=== PATIENT | male | born 1975 | race Hispanic/Latino ===

== ENCOUNTER 2018-07-11 11:51 | Emergency (ER) | payer SELFPAY ==
[~2018-07-11] VITALS: Ht 165.1 cm; Wt 91.2 kg
[2018-07-11] MEDS ORDERED: SODIUM CHLORIDE 0.9% 1000ML 1,000 ML ONE (12:11)
[2018-07-11] MEDS ORDERED: SODIUM CHLORIDE 0.9% 250ML 250 ML IV ONE (12:15)
[2018-07-11] MEDS ORDERED: SODIUM CHLORIDE 0.9% 1000ML 1,000 ML IV ONE ×2 (12:15→12:30)
[2018-07-11 12:21] LABS: CLARITY,URINE HAZY (CLEAR); COLOR,URINE AMBER (YELLOW)
[2018-07-11 12:22] LABS: BILIRUBIN,URINE 1+ (NEGATIVE); KETONES,URINE 1+ (NEGATIVE); LEUKOCYTE ESTERASE ,URINE TRACE (NEGATIVE); NITRITE,URINE NEGATIVE (NEGATIVE); PROTEIN,URINE DIPSTICK 1+ (NEGATIVE); URINE UROBILINOGEN 12 mg/dL (0.2 - 1)
[2018-07-11 12:35] LABS: BASOPHILS % 0.4 % (0.0-1.0); EOSINOPHILS % 0.4 % (0.0-6.0); HEMATOCRIT 42.8 % (38.2-49.6); HEMOGLOBIN 14.6 g/dL (14.0-18.0); LYMPHOCYTES # (AUTO) 0.9 (1.0-3.2); LYMPHOCYTES % 12.6 % (18.0-39.1); MEAN CORPUSCULAR HEMOGLOBIN 29.9 pg (28-32); MEAN CORPUSCULAR HGB CONC 34.1 g/dL (31-35); MEAN CORPUSCULAR VOLUME 87.7 fL (81-99); MONOCYTES % 13.8 % (4.4-11.3); NEUTROPHILS # (AUTO) 5.2 (2.1-6.9); NEUTROPHILS % 72.1 % (38.7-80.0); PLATELET COUNT 167 x10e3/uL (140-360); RED BLOOD COUNT 4.88 x10e6/uL (4.3-5.7); RED CELL DISTRIBUTION WIDTH 12.5 % (11.7-14.4)
[2018-07-11 12:38] LABS: BACTERIA,URINE FEW /HPF; EPITHELIAL CELLS,URINE FEW /LPF; RBC,URINE 0-5 /HPF (0-5); WBC,URINE (MAN) 0-5 /HPF (0-5)
[2018-07-11 12:51] LABS: ALANINE AMINOTRANSFERASE 91 IU/L (0-55); ALBUMIN 3.7 g/dL (3.5-5.0); ALBUMIN/GLOBULIN RATIO 0.8 (0.8-2.0); ALKALINE PHOSPHATASE 67 IU/L (40-150); ANION GAP 14.5 mmol/L (8-16); BLOOD UREA NITROGEN 11 mg/dL (7-26); BUN/CREATININE RATIO 11 (6-25); CARBON DIOXIDE 20 mmol/L (22-29); CHLORIDE 101 mmol/L (98-107); CREATINE KINASE 242 IU/L (30-200); EST GLOMERULAR FILTRATION RATE > 60 ML/MIN (60-); GLUCOSE 109 mg/dL (74-118); POTASSIUM 3.5 mmol/L (3.5-5.1); SODIUM 132 mmol/L (136-145)
[2018-07-11] MEDS ORDERED: PIPER-TAZ 3.375 GM 50 ML IV ONE (13:00)
--- NOTE | 2018-07-11 13:08 | Diagnostic Imaging Report ---
Examination: Single AP view of the chest. COMPARISON: None. INDICATION: High fever, shortness of breath DISCUSSION: Lines/tubes: None. Lungs: The lungs are well inflated and clear. No pneumonia or pulmonary edema. Pleura: No pleural effusion or pneumothorax. Heart and mediastinum: Mild cardiomegaly Bones and soft tissues: No acute bony abnormalities. IMPRESSION: 1. No acute cardiopulmonary abnormalities. Signed by: Dr. George Tomas M.D. on 07/11/2018 1:04 PM
[2018-07-11] MEDS ORDERED: METRONIDAZOLE 750MG/NS 150ML 150 ML IV ONE (13:30)
--- NOTE | 2018-07-11 13:41 | Diagnostic Imaging Report ---
EXAMINATION: CT scan of the chest with contrast. TECHNIQUE: Helical CT images of the chest were performed from the lung apices to the level of the adrenal glands. 100 cc of Isovue-300. Dose modulation, iterative reconstruction, and/or weight based adjustment of the mA/kV was utilized to reduce the radiation dose to as low as reasonably achievable. COMPARISON: None. CLINICAL HISTORY:High fever DISCUSSION: ABSENCE OF INTRAVENOUS CONTRAST DECREASES SENSITIVITY FOR DETECTION OF FOCAL LESIONS AND VASCULAR PATHOLOGY. LINES/TUBES: None. LUNGS AND AIRWAYS: The lungs are clear. No pulmonary nodules, masses or consolidation. The airways are normal, without endobronchial lesions. PLEURA: No pneumothorax or pleural effusions. HEART AND MEDIASTINUM: The thyroid gland is normal. Heart size enlarged. LYMPH NODES: There is no mediastinal, hilar or axillary lymphadenopathy. ABDOMEN: Limited contrast-enhanced views of the upper abdomen show no abnormality within the visualized liver, spleen, pancreas, or kidneys. The adrenal glands are normal. BONES AND SOFT TISSUES: No acute bony abnormalities. IMPRESSION: No acute CT thoracic finding. Signed by: Dr. George Tomas M.D. on 07/11/2018 1:37 PM
[2018-07-11 14:04] VITALS: BP 113/69
[2018-07-11] MEDS ORDERED: TYLENOL # 31 EA PO (14:15)
[2018-07-11] MEDS ORDERED: HYDROMORPHONE 2MG/ML 2 MG/ML ML IV ONE ×2 (16:00→18:30)
[2018-07-11] MEDS ORDERED: SODIUM CHLORIDE 0.9% 50ML 50 ML ONE (17:25)
[2018-07-11] MEDS ORDERED: IOPAMIDOL 370 MG/ML 200 ML INFUS..BTL INJ ONE (17:26)
== END 2018-07-11 14:33 | disposition home or self-care (01) ==
LOC: ER 11:51
DX: R10.33 Periumbilical pain (principal); R10.84 Generalized abdominal pain; B34.9 Viral infection, unspecified
CPT/HCPCS: 36415; 71045; 71260; 80053; 81001; 82550; 82553; 83605; 84484; 85025; 87040; 99284; J2543; J7030; Q9967